=== PATIENT | female | born 1970 | race Caucasian/White ===

== ENCOUNTER 2021-06-18 06:54 | Day surgery (SDC) | payer OTHER, SELFPAY ==
--- NOTE | 2021-06-17 10:49 | HO.ANESPROP2 ---
Documented by User: Alyse Farah NP 06/17/21 10:50 HPI - Anesthesia Eval Consult details Narrative: 51yo F for Colonoscopy [facility] Past Medical History Medical History (Updated 06/17/21 @ 19:19 by Hao Leavitt MD) Anxiety Seasonal allergies Urinary incontinence Surgical History Surgical History (Updated 06/13/21 @ 09:45 by Iasbel Bassett, RN) Hx of colonoscopy Social History Social History Tobacco use type: Smokeless Tobacco Use of substances other than those prescribed or required for medical reasons: Yes Substance Use Frequency: Daily Are you DNR?: No Advance Directives: No Advance Directives Information Provided: Yes Recently lost weight without trying: No Meds Allergies Allergy/AdvReac Type Severity Reaction Status Date / Time No Known Allergies Allergy Unverified 05/17/20 19:16 [No Known Allergies*] ABX Sensitivity AdvReac Unknown Gastrointestinal Uncoded 06/13/21 09:49 Upset Home Medications Medication Instructions Recorded Confirmed Last Taken Type cholecalciferol (vitamin D3) 50 100 mcg PO DAILY 06/13/21 06/13/21 Unknown History mcg (2,000 unit) capsule (Vitamin D3) finasteride 1 mg tablet 1 mg PO DAILY 06/13/21 06/13/21 Unknown History multivitamin 1 tab PO DAILY 06/13/21 06/13/21 Unknown History pantoprazole 40 mg tablet,delayed 40 mg PO DAILY 06/13/21 06/13/21 Unknown History release Exam Exam Date and Time: June 17, 2021 1049 Assessment and Plan Assessment Anesthesia Assessment: Chart Reviewed Documented by User: Alicia Rivera MD 06/18/21 09:34 [facility] Past Medical History Medical History (Updated 06/17/21 @ 19:19 by Hao Leavitt MD) Anxiety Seasonal allergies Urinary incontinence Family History Family history of problems with anesthesia: No Surgical History Surgical History (Updated 06/13/21 @ 09:45 by Isabel Bassett, NIKO) Hx of colonoscopy History of Problems with Anesthesia: No (Was told she was moving a lot during colonoscopy. Review of only available record reveals that she did get a sizeable amount of propofol for colonoscopy. States was on pain medication at the time which she has since stopped and thinks she had a high tolerance.) Social History Social History Tobacco use type: Smokeless Tobacco Use of substances other than those prescribed or required for medical reasons: Yes Substance Use Frequency: Daily Are you DNR?: No Advance Directives: No Advance Directives Information Provided: Yes Recently lost weight without trying: No Meds Allergies Allergy/AdvReac Type Severity Reaction Status Date / Time No Known Allergies Allergy Unverified 05/17/20 19:16 [No Known Allergies*] ABX Sensitivity AdvReac Unknown Gastrointestinal Uncoded 06/13/21 09:49 Upset Home Medications Medication Instructions Recorded Confirmed Last Taken Type cholecalciferol (vitamin D3) 50 100 mcg PO DAILY 06/13/21 06/13/21 Unknown History mcg (2,000 unit) capsule (Vitamin D3) finasteride 1 mg tablet 1 mg PO DAILY 06/13/21 06/13/21 Unknown History multivitamin 1 tab PO DAILY 06/13/21 06/13/21 Unknown History pantoprazole 40 mg tablet,delayed 40 mg PO DAILY 06/13/21 06/13/21 Unknown History release Exam Height,Weight and Vital Signs: Height 5 ft 7 in Weight 68.946 kg Vital Signs Temp Pulse Resp BP Pulse Ox 06/18/21 07:14 97.5 F 65 15 116/71 96 Pertinent Lab Results Pertinent Lab Results: Lab Results 06/18/21 Range/Units 07:09 Urine Test NEGATIVE (NEGATIVE) Airway Mallampati Class: II TM Dist: >3cm Neck ROM: Full Loose/Missing/Broken Teeth: No Heart: RRR Lungs: CTAB Assessment and Plan Assessment Anesthesia Assessment: Anesthesia Plan Discussed Final Anesthetic Review Family History of Problems with Anesthesia: No History of Problems with Anesthesia: No (Was told she was moving a lot during colonoscopy. Review of only available record reveals that she did get a sizeable amount of propofol for colonoscopy. States was on pain medication at the time which she has since stopped and thinks she had a high tolerance.) NPO: Yes ASA Class: II Final Preanesthetic Review: No Changes in Pt Med Stat, Meds/Allgs Chart Reviewed, Consent Obtained/Reviewed and Anes Risks/Benef Reviewed Patient Risk: Low Procedure Risk: Low Assessment/Block/Sedation in SS: Assess/Block/Sedation-SS Anesthetic Plan Anesthetic Plan: MAC: Disposition: Standard PACU
[2021-06-18 07:08] VITALS: BMI 23.8
[2021-06-18 07:14] VITALS: BP 116/71; PULSE 65; RESP 15; TEMP 36.4; O2SAT 96
[2021-06-18 07:30] LABS: UPreg QC Valid YES; Urine Pregnancy NEGATIVE (NEGATIVE)
--- NOTE | 2021-06-18 08:19 | MHC.SHP ---
Pre-Procedural Eval Section A Date of Service: 06/18/21 Section B Chief Complaint: hx of polyps Details of Present Illness: seeH&P no changes Relevant Family History (Specify if Yes): No Relevant Social History: None Present Medications: see Short Stay Collaborative assessment Medical History: No relevant PMH History of Previous Operations: No relevant previous surgery Allergies: Allergies Allergy/AdvReac Type Severity Reaction Status Date / Time No Known Allergies Allergy Unverified 05/17/20 19:16 [No Known Allergies*] ABX Sensitivity AdvReac Unknown Gastrointestinal Uncoded 06/13/21 09:49 Upset Review of Systems Sugical H&P ROS: Negative: Constitution, Cardiovascular, Respiratory, Neurological, Psychiatric, Hem-Onc, Allergic/Immunologic, Gastrointestinal, Genitourinary, Musculoskeletal, Integumentary, Endocrine and Eyes/Ears/Nose/Throat Exam Surgical H&P Exam: Normal: HEENT, Normal: Heart, Normal: Lungs, Normal: Extremities, Normal: Abdomen, Normal: Skin and Normal: Neurological Plan Diagnosis/Plan: Unchanged I have reviewed the history and physical and performed a pertinent physical examination on my patient. No changes have occurred unless specified.
--- NOTE | 2021-06-18 08:47 | PM.OP ---
Brief Operative Note Date of Service: 06/18/21 Pre-op diagnosis: screening Post-op diagnosis: same (colon polyp) Surgeon: Jorge Castillo Anesthesia: MAC Was an [employer] used for this Procedure?: No Estimated blood loss (mL): 2 Pathology: other (polyp x1) Condition: stable Disposition: PACU
[2021-06-18 08:50] VITALS: BP 108/55; PULSE 51; RESP 14; TEMP 36.2; O2SAT 100
[2021-06-18 09:06] VITALS: BP 115/71; PULSE 50; RESP 16; TEMP 36.2; O2SAT 100
--- NOTE | 2021-06-18 17:44 | OP_ITS ---
SURGEON: Jorge Castillo MD INDICATIONS: Colon cancer screening and prior history of adenomatous colon polyps. PREOPERATIVE DIAGNOSIS: POSTOPERATIVE DIAGNOSIS: PROCEDURE PERFORMED: Colonoscopy to the terminal ileum with biopsy. ESTIMATED BLOOD LOSS: COMPLICATIONS: ANESTHESIA: ASSISTANTS: SPECIMENS: MEDICATIONS: Monitored anesthesia care. DESCRIPTION OF PROCEDURE: History and physical performed. The risks and benefits of the procedure were explained to the patient. Informed consent was obtained. The patient was placed in the left lateral decubitus position. A digital rectal exam was performed and was found to be normal. The Olympus pediatric video colonoscope was introduced into the rectum and advanced to the cecum without difficulty. The cecum was identified by transillumination, palpation, and identification of ileocecal valve. Examination was performed and the scope was removed. She tolerated the procedure well and was taken to recovery area in stable condition. FINDINGS: The terminal ileum was normal. The visualized colonic mucosa was within normal limits without evidence of masses or ulcers. A single polyp was identified and removed with biopsy forceps. This was located at 20 cm from the anal verge and measured less than 5 mm. No other polyps were identified. The quality of the prep was good. Retroflexed examination was normal. IMPRESSION: Colon polyp. RECOMMENDATION: Follow up biopsy results. MD FAVIO Ernandez/MICHELLE / [id number]
== END 2021-06-18 09:37 | disposition home or self-care (01) ==
PROVIDERS: Nurse Practitioner; PCP Hospitalist; Visit Provider Internal Medicine Gastroenterology
PROC: 0DJD8ZZ Inspection of Lower Intestinal Tract, Via Natural or Artificial Opening Endoscopic (ICD-10-PCS; CPT 45378; principal; 2021-06-18 08:10)
DX: Z12.11 Encounter for screening for malignant neoplasm of colon (principal); Z86.010 Personal history of colon polyps; K63.5 Polyp of colon; K21.9 Gastro-esophageal reflux disease without esophagitis; J30.2 Other seasonal allergic rhinitis; F41.1 Generalized anxiety disorder; Z79.899 Other long term (current) drug therapy
CPT/HCPCS: 45380; 81025; 88305

== ENCOUNTER 2021-08-19 09:44 | Outpatient (REF) | payer OTHER, SELFPAY ==
[2021-08-19 10:14] LABS: MANUAL DIFF FLAG NO
[2021-08-19 10:19] LABS: Basophils Percent Auto 0.8 % (0-2); Eosinophils Absolute Auto 0.2 X10*3/uL (0.0-0.4); Eosinophils Percent Auto 4.7 % (0-4); Hematocrit 41.2 % (37.0-47.0); Hemoglobin 13.2 g/dl (12.0-16.0); Lymphocytes Absolute Auto 1.3 X10*3/uL (1.2-4.9); Lymphocytes Percent Auto 26.8 % (20-40); Mean Corpuscular Hemoglobin 30.1 pg (27.0-33.0); Mean Corpuscular Volume 94.1 fL (80.0-98.0); Mean Platelet Volume 10.1 fL (9.4-12.3); Monocytes Absolute Auto 0.3 X10*3/uL (0.1-1.2); Monocytes Percent Auto 5.7 % (2-11); Neutrophils Absolute Auto 2.9 x10*3/uL (2.0-8.3); Platelet Count 327 X10*3/uL (160-400); Red Blood Count 4.38 X10*6/uL (4.20-5.50); Red Cell Distribution Width 11.8 % (11.0-16.0); White Blood Count 4.7 X10*3/uL (4.8-10.8)
[2021-08-19 10:55] LABS: Alanine Aminotransferase 13 U/L (0-31); Albumin Level 4.3 g/dL (3.5-5.0); Alkaline Phosphatase 60 U/L (39-117); Aspartate Amino Transferase 14 U/L (5-31); Bilirubin Direct 0.2 mg/dL (0.0-0.5); Bilirubin Total 0.4 mg/dL (0.0-1.0); Lipase 9 U/L (8-78); Total Protein 6.8 g/dL (6.5-8.0)
== END 2021-08-19 09:45 | disposition home or self-care (01) ==
LOC: HO.10HDL 09:44
PROVIDERS: Visit Provider Internal Medicine Gastroenterology
DX: R10.9 Unspecified abdominal pain (principal)
CPT/HCPCS: 36415; 80076; 83690; 85025

== ENCOUNTER 2022-10-14 09:15 | Day surgery (SDC) | payer OTHER, SELFPAY ==
[2022-10-14 09:40] LABS: UPreg QC Valid YES; Urine Pregnancy NEGATIVE (NEGATIVE)
[2022-10-14 10:01] VITALS: BP 141/79; PULSE 63; RESP 16; TEMP 36.8; O2SAT 98; BMI 25.8
--- NOTE | 2022-10-14 11:18 | HO.ANESPROP2 ---
HPI - Anesthesia Eval Consult details Narrative: 52 yr old female with GERD for endo PMFSH Active Problems Active Problems: All Active Problems (Updated 10/13/22 @ 09:06 by Idania Dougherty RN) Nausea and vomiting (Acute) Past Medical History Medical History (Updated 10/13/22 @ 09:06 by Idania Dougherty RN) Anxiety Back pain Hip pain Seasonal allergies Urinary incontinence Family History Family history of problems with anesthesia: No Surgical History Surgical History (Updated 10/13/22 @ 09:06 by Idania Dougherty RN) Hx of colonoscopy History of Problems with Anesthesia: No (Was told she was moving a lot during colonoscopy. Review of only available record reveals that she did get a sizeable amount of propofol for colonoscopy. States was on pain medication at the time which she has since stopped and thinks she had a high tolerance.) Social History Social History Patient Tobacco Use Status: Former Tobacco user Quit Date: 2020 Tobacco use type: Cigarette Cigarette Packs Per Day: 0.5 Cigarettes Per Day: 10.0 Years Smoked: 30 Smoked in Last 30 Days: No Use of substances other than those prescribed or required for medical reasons: Yes Substance Use Type Other:: Medical Marijuana Substance Use Frequency: Daily Are you DNR?: No Advance Directives: No Advance Directives Information Provided: Yes Meds Allergies Allergy/AdvReac Type Severity Reaction Status Date / Time No Known Allergies Allergy Verified 10/14/22 10:00 [No Known Allergies*] ABX Sensitivity AdvReac Unknown Gastrointestinal Uncoded 10/14/22 10:00 Upset Home Medications Medication Instructions Recorded Confirmed Last Taken Type cholecalciferol (vitamin D3) 50 100 mcg PO DAILY 06/13/21 10/14/22 Unknown History mcg (2,000 unit) capsule (Vitamin D3) multivitamin 1 tab PO DAILY 06/13/21 10/14/22 Unknown History pantoprazole 40 mg tablet,delayed 40 mg PO DAILY 06/13/21 10/14/22 Unknown History release bupropion HCl 150 mg 24 hr tablet, 150 mg PO DAILY 10/14/22 10/14/22 Unknown History extended release Exam Exam Date and Time: October 14, 2022 1118 Height,Weight and Vital Signs: Height 5 ft 7 in Weight 74.843 kg Last Vital Signs Temp 98.3 F 10/14/22 10:01 Pulse 63 10/14/22 10:01 Resp 16 10/14/22 10:01 BP 141/79 H 10/14/22 10:01 Pulse Ox 98 10/14/22 10:01 O2 Del Method 10/14/22 10:01 Pertinent Lab Results Pertinent Lab Results: Laboratory Tests 10/14/22 09:25 Urine Test NEGATIVE Airway Mallampati Class: II TM Dist: >3cm Neck ROM: Full Heart: rrr Lungs: cta Assessment and Plan Assessment Anesthesia Assessment: Anesthesia Plan Discussed and Chart Reviewed Final Anesthetic Review Family History of Problems with Anesthesia: No History of Problems with Anesthesia: No (Was told she was moving a lot during colonoscopy. Review of only available record reveals that she did get a sizeable amount of propofol for colonoscopy. States was on pain medication at the time which she has since stopped and thinks she had a high tolerance.) NPO: Yes ASA Class: II Final Preanesthetic Review: No Changes in Pt Med Stat, Meds/Allgs Chart Reviewed, Consent Obtained/Reviewed and Anes Risks/Benef Reviewed Patient Risk: Low Procedure Risk: Low Anesthetic Plan Anesthetic Plan: MAC: Disposition: Standard PACU
--- NOTE | 2022-10-14 11:21 | MHC.SHP ---
Pre-Procedural Eval Section A Date of Service: 10/14/22 The patient is an INPATIENT: No Changes since office visit: No Cold of Flu in the past 2 weeks, No New Medical Problems, No Changes in Medication and No Patient answered all questions The History & Physical has been completed within 30 days and I have reviewed it.: Yes Section B Chief Complaint: Epigastric pain Allergies: Allergies Allergy/AdvReac Type Severity Reaction Status Date / Time No Known Allergies Allergy Verified 10/14/22 10:00 [No Known Allergies*] ABX Sensitivity AdvReac Unknown Gastrointestinal Uncoded 10/14/22 10:00 Upset Plan I have reviewed the history and physical and performed a pertinent physical examination on my patient. No changes have occurred unless specified. Time Spent With Patient Time: Total time managing care of this patient today ____ minutes.
[2022-10-14] MEDS: Lactated Ringers 1,000 ML 100 ML IVCONT (11:24)
--- NOTE | 2022-10-14 11:44 | P.BOP_ITS ---
Brief Operative Note Date of Service: 10/14/22 Pre-op diagnosis: epigastric pain gerd Post-op diagnosis: same Procedure: EGD Surgeon: Jorge Castillo Anesthesia: MAC Was an Operating Room Orderly used for this Procedure?: No Estimated blood loss (mL): 2 Pathology: other Condition: stable Disposition: PACU
[2022-10-14 11:47] VITALS: BP 101/65; PULSE 57; RESP 17; TEMP 37.3; O2SAT 99
[2022-10-14 12:02] VITALS: BP 137/81; PULSE 67; RESP 18; TEMP 36.1; O2SAT 100
--- NOTE | 2022-10-14 12:26 | OP_ITS ---
SURGEON: Jorge Castillo MD INDICATIONS: Epigastric pain and GERD. PREOPERATIVE DIAGNOSIS: POSTOPERATIVE DIAGNOSIS: PROCEDURE PERFORMED: Upper endoscopy with biopsy. ESTIMATED BLOOD LOSS: COMPLICATIONS: ANESTHESIA: Monitored anesthesia care. ASSISTANTS: SPECIMENS: DESCRIPTION OF PROCEDURE: The procedure was performed on 10/14/2022. History and physical was performed. The risks and benefits of the procedure were explained to the patient. Informed consent was obtained. The patient was placed in the left lateral decubitus position. The Olympus video gastroscope was introduced into the esophagus, stomach, and duodenum. Examination was performed. The scope was removed. She tolerated the procedure well and was taken to the recovery area in stable condition. FINDINGS: Esophagus: The esophagus was normal. There was an irregular EG junction. Biopsies were obtained at 30 cm and at the EG junction. There was no esophagitis. Stomach: The stomach showed a small hiatal hernia. There was no gastritis. Biopsies were obtained from the antrum. Duodenum: The bulb and 2nd portion were normal. IMPRESSION: Gastroesophageal reflux disease. RECOMMENDATION: Follow up the biopsy results. MD FAVIO Ernandez/MICHELLE / [id number]
== END 2022-10-14 12:34 | disposition home or self-care (01) ==
PROVIDERS: Anesthesiology; PCP Hospitalist; Visit Provider Internal Medicine Gastroenterology
PROC: 0DJ08ZZ Inspection of Upper Intestinal Tract, Via Natural or Artificial Opening Endoscopic (ICD-10-PCS; CPT 43235; principal; 2022-10-14 10:40)
DX: R10.13 Epigastric pain (principal); K21.9 Gastro-esophageal reflux disease without esophagitis; K44.9 Diaphragmatic hernia without obstruction or gangrene; R32 Unspecified urinary incontinence; J30.2 Other seasonal allergic rhinitis; F41.1 Generalized anxiety disorder; Z79.899 Other long term (current) drug therapy; Z88.1 Allergy status to other antibiotic agents
CPT/HCPCS: 43239; 81025; 88305; 88342

== ENCOUNTER 2025-02-14 09:29 | Day surgery (SDC) | payer OTHER, SELFPAY ==
--- OUTSIDE RECORDS SUMMARY | 2025-02-10 13:16 | XMS_ITS ---
Author Organization [facility] Address [address] [place] [address] Care Team Providers Care [place] Constable Name Role Phone ISABELA AGUERO Primary Care Provider Jorge Diallo Jr Unavailable Allergies Allergen (clinical drug ingredient) Drug/Non Drug Allergy documented on EMR Reaction Allergy Type Onset Date Status antibiotics (uncoded) stomach upset Allergy Active REASON FOR VISIT patient presents today for mora's esophagus Medications Medication SIG (Take, Route, Frequency, Duration) Notes Start Date End Date Status Hydrocortisone (Perianal) 2.5 % APPLY DAILY TO SKIN TO AFFECTED AREA TWICE A DAY FOR 30 DAYS for 30 days Active Pantoprazole Sodium 40 MG TAKE 1 TABLET BY MOUTH EVERY DAY FOR 30 DAYS for 90 Active buPROPion HCl ER (XL) 150 MG TAKE 1 TABLET BY MOUTH EVERY DAY IN THE MORNING FOR 30 DAYS Oral for 30 Active Multivitamin Adult - Orally Active Vitamin D3 2000 UNIT TAKE 2 CAPSULES BY MOUTH EVERY DAY Oral for 30 Active Antacid Not-Taking Social History Tobacco Use: Social History Observation Description Date Details (start date - stop date) Former Smoker NA - NA Tobacco Control (Standard) Question Answer Notes Tobacco use: Former smoker How long has it been since you last smoked? 1-5 years Section Notes: quit tobacco 09/16/2020 Vital Signs Blood pressure systolic 111 mm Hg 01/20/20 25 Blood pressure diastolic 77 mm Hg 025 Height 67 in 01/19/2025 Weight 161 lbs 01/19/2025 BMI 25.21 kg/m2 01/19/2025 Encounters Encounter Location Date Provider Diagnosis [facility] [address] [place] [address] 01/19/2025 Jorge Castillo Jr Mora's esophagus without dysplasia K22.70 and Rectal pain K62.89 Assessments Encounter Date Diagnosis (ICD Code) Assessment Notes Treatment Notes Treatment Clinical Notes Section Notes 01/19/2025 Mora's esophagus without dysplasia (ICD-10 - K22.70) We discussed her symptoms today. She will use hydrocortisone OTC for rectal discomfort. We discussed how to use this medication in detail. She is due for follow-up of her Mora's esophagus. This will be arranged at her convenience. She understands endoscopy including risks and benefits and agrees to proceed. 01/19/2025 Rectal pain (ICD-10 - K62.89) We discussed her symptoms today. She will use hydrocortisone OTC for rectal discomfort. We discussed how to use this medication in detail. She is due for follow-up of her Mora's esophagus. This will be arranged at her convenience. She understands endoscopy including risks and benefits and agrees to proceed. Plan Of Treatment Medication Medication Name Sig Start Date Stop Date Notes Hydrocortisone (Perianal) 2.5 % APPLY DA STEVEN TO SKIN TO AFFECTED AREA TWICE A DAY FOR 30 DAYS for 30 days Future Test Test Name Order Date UPPER GI ENDOSCOPY 01/19/2025 Next Appt Details Follow Up: 1 Year, Reason: Provider Name:Jorge casanova Jr, 02/14/2025 11:10:00 AM, [address] [place] [address], [id number], Progress Notes * AJ HALLMANOB: 2 (54 yo F)Acc No.[id number]:01/19/2025 Progress Notes Patient:?HALINA HALLMAN Provider:?Jorge Castillo MD :1970???Age:54 Y???Sex:Female D ate:01/19/2025 Address:[address] [place] [address] Pcp:ISABELA AGUERO Subjective: * Chief Complaints: * ???1. Patient presents today for mora's esophagus. * HPI: ???New symptom(s):?The patient is a pleasant 54-year-old woman seen today in follow-up of Mora's esophagus and colorectal cancer screening. Since we saw her last in 2022 she has been doing well. She had endoscopy at that time and is due for follow-up shortly. She takes pantoprazole 40 mg daily. She has no complaints of dysphagia, hematemesis, or melena. She does have occasional heartburn. She reports stools are thin and soft. There is no rectal bleeding.There is some rectal pain and we discussed using hydrocortisone cream for intermittent rectal symptoms today. * Medical History:?Urinary inc ontinence, Colonoscopy 06/18/21, hyperplastic polyp, five-year followup due to prior history of tubular adenomas, Anxiety, Back and hip problems, Seasonal allergies, Gastroesophageal reflux disease, EGD 10/14/22, Mora's esophagus, no dysplasia three-year followup. * Surgical History:?skin over eyes cut to see as infant , wisdom teeth age 17. * Family History:?Father: tiara desai, diagnosed with Heart disease, HTN (hypertension).?Mother: alive.?Paternal Grand Mother: , stomach cancer.? paternal cousin in his 30's type of stomach ca Patient is not aware of any colon cancer, polyps or liver cancer. * Social History:?Tobacco Use:?Tobacco Control (Standard)?Tobacco use:?Former smoker,?How long has it been since you last smoked??1-5 years.?Miscellaneous:?Marital status: single. Occupation: clerical. ???quit tobacco 09/16/2020. * Medications:?Taking Vitamin D3 2000 UNIT Capsule TAKE 2 CAPSULES BY MOUTH EVERY DAY Oral , Taking Multivitamin Adult - Tablet Orally , Taking buPROPion HCl ER (XL) 150 MG Tablet Extended Release 24 Hour TAKE 1 TABLET BY MOUTH EVERY DAY IN THE MORNING FOR 30 DAYS Oral , Taking Pantoprazole Sodium 40 MG Tablet Delayed Release TAKE 1 TABLET BY MOUTH EVERY DAY FOR 30 DAYS , Not-Taking/PRN Antacid , Not-Taking/PRN Hydrocortisone (Perianal) 2.5 % Cream APPLY DAILY TO SKIN TO AFFECTED AREA TWICE A DAY FOR 30 DAYS , Discontinued Famotidine 20 MG Tablet 1 tablet at bedtime Orally Once a day , Medication List reviewed and reconciled with the patient * Allergies:?Antibiotics: Stom ach Upset. Objective: * Vitals:?Wt:161lbs, Ht: 67 in , BMI:25.21Index, BP:111/77mm Hg, Wt-k.03. * Examination: ???General Examination: ???On examination today, Halina is a pleasant well-appearing female in no acute distress. Skin is anicteric. Lungs are clear. Heart shows a regular rate and rhythm. Abdomen is soft without focal masses or tenderness. Extremities are without edema. Assessment: * Assessment: 1.?Mora's esophagus witho ut dysplasia - K22.70 (Primary)???2.?Rectal pain - K62.89??? We discussed her symptoms to day. She will use hydrocortisone OTC for rectal discomfort. We discussed how to use this medication in detail. She is due for follow-up of her Mora's esophagus. This will be arranged at her convenience. She understands endoscopy including risks and benefits and agrees to proceed. Plan: * Treatment: 2.?Rectal pain? Refill Hydrocortisone (Perianal) Cream, 2.5 %, APPLY DAILY TO SKIN TO AFFECTED AREA TWICE A DAY FOR30 DAYS, 30 days, 30 Gram, Refills 0.?? * Procedure Codes:?3017F COLOR ECTAL CA SCREEN DOC REV, 1036F TOBACCO NON-USER, G8785 BP SCR NOT PRFRM REC REASON NOS * Preventive Medicine:? ??Counseling:?Care goal follow-up plan:?Above Normal BMI Follow-up?Giving encouragement to exercise,?BMI management provided?Yes.? * Follow Up:?1 Year * * Sign off status: Completed true * Provider:?Jorge Castillo MD Date:?0 01/19/2025 Generated for Michael salvador/Carolin/Oliviaitting on:?02/10/2025 01:15 PM EDT History and Physical Notes * HPI (History of Present Illness) Category Sub-Category Detail Notes Category Not es New symptom(s) The patient i s a pleasant 54-year-old woman seen today in follow-up of Mora's esophagus and colorectal cancer screening. Since we saw her last in 2022 she has been doing well. She had endoscopy at that time and is due for follow-up shortly. She takes pantoprazole 40 mg daily. She has no complaints of dysphagia, hematemesis, or melena. She does have occasional heartburn. She reports stools are thin and soft. There is no rectal bleeding.There is some rectal pain and we discussed using hydrocortisone cream for intermittent rectal symptoms today. Examination Category Sub-Category Detail Notes Category Not es General Examination On exami nation today, Halina is a pleasant well-appearing female in no acute distress. Skin is anicteric. Lungs are clear. Heart shows a regular rate and rhythm. Abdomen is soft without focal masses or tenderness. Extremities are without edema.
[2025-02-10 14:56] VITALS: BMI 25.2
--- NOTE | 2025-02-13 10:36 | P.CONAN_ITS ---
Documented by User: Alyse Farah NP 02/13/25 10:36 HPI - Anesthesia Eval Consult details Narrative: 55yo F for Upper Endoscopy PMFSH Active Problems Active Problems: All Active Problems Nausea and vomiting (Acute) Past Medical History Medical History GERD (gastroesophageal reflux disease) Johnson's esophagus Hip pain Back pain Seasonal allergies Anxiety Urinary incontinence Family History Family history of problems with anesthesia: No Surgical History Surgical History Hx of wisdom tooth extraction History of eyelid surgery History of esophagogastroduodenoscopy (EGD) (10/14/22) Hx of colonoscopy History of Problems with Anesthesia: No (Was told she was moving a lot during colonoscopy. Review of only available record reveals that she did get a sizeable amount of propofol for colonoscopy. States was on pain medication at the time which she has since stopped and thinks she had a high tolerance.) Social History Social History Are you a primary auto care center manager to a significant other at home: No Do you presently have visiting nurse or other home services: No Patient Tobacco Use Status: Former Tobacco user Tobacco use type: Cigarette Cigarette Packs Per Day: 0.5 Cigarettes Per Day: 10.0 Years Smoked: 30 Meds Allergies Allergy/AdvReac Type Severity Reaction Status Date / Time No Known Allergies Allergy Verified 10/14/22 10:00 [No Known Allergies*] ABX Sensitivity AdvReac Unknown Gastrointestinal Uncoded 10/14/22 10:00 Upset Home Medications ?Medication ?Instructions ?Recorded ?Confirmed ?Last Taken ?Type cholecalciferol (vitamin D3) 50 100 mcg PO DAILY 06/13/21 02/10/25 Unknown History mcg (2,000 unit) capsule (Vitamin D3) multivitamin 1 tab PO DAILY 06/13/21 02/10/25 Unknown History pantoprazole 40 mg tablet,delayed 40 mg PO DAILY 06/13/21 02/14/25 02/14/25 History release bupropion HCl 150 mg 24 hr tablet, 150 mg PO DAILY 10/14/22 02/10/25 Unknown History extended release Exam Height,Weight and Vital Signs: Height 5 ft 7 in Weight 73.028 kg Assessment and Plan Assessment Anesthesia Assessment: Chart Reviewed Final Anesthetic Review Family History of Problems with Anesthesia: No History of Problems with Anesthesia: No (Was told she was moving a lot during colonoscopy. Review of only available record reveals that she did get a sizeable amount of propofol for colonoscopy. States was on pain medication at the time which she has since stopped and thinks she had a high tolerance.) Documented by User: Misty Welch MD 02/14/25 11:20 PMFSH Past Medical History Medical History GERD (gastroesophageal reflux disease) Johnson's esophagus Hip pain Back pain Seasonal allergies Anxiety Urinary incontinence Surgical History Surgical History Hx of wisdom tooth extraction History of eyelid surgery History of esophagogastroduodenoscopy (EGD) (10/14/22) Hx of colonoscopy Social History Social History Are you a primary auto care center manager to a significant other at home: No Do you presently have visiting nurse or other home services: No Patient Tobacco Use Status: Former Tobacco user Tobacco use type: Cigarette Cigarette Packs Per Day: 0.5 Cigarettes Per Day: 10.0 Years Smoked: 30 Meds Allergies Allergy/AdvReac Type Severity Reaction Status Date / Time No Known Allergies Allergy Verified 10/14/22 10:00 [No Known Allergies*] ABX Sensitivity AdvReac Unknown Gastrointestinal Uncoded 10/14/22 10:00 Upset Home Medications ?Medication ?Instructions ?Recorded ?Confirmed ?Last Taken ?Type cholecalciferol (vitamin D3) 50 100 mcg PO DAILY 06/13/21 02/10/25 Unknown History mcg (2,000 unit) capsule (Vitamin D3) multivitamin 1 tab PO DAILY 06/13/21 02/10/25 Unknown History pantoprazole 40 mg tablet,delayed 40 mg PO DAILY 10/14/21 06/17/25 06/17/25 History release bupropion HCl 150 mg 24 hr tablet, 150 mg PO DAILY 10/14/22 02/10/25 Unknown History extended release Exam Airway Mallampati Class: II TM Dist: >3cm Neck ROM: Full Loose/Missing/Broken Teeth: No Heart: RRR Lungs: CTA Assessment and Plan Assessment Anesthesia Assessment: Anesthesia Plan Discussed Final Anesthetic Review NPO: Yes ASA Class: II Final Preanesthetic Review: Meds/Allgs Chart Reviewed, Consent Obtained/Reviewed and Anes Risks/Benef Reviewed Patient Risk: Low Procedure Risk: Intermediate Anesthetic Plan Anesthetic Plan: MAC: Disposition: Standard PACU
[2025-02-14 09:58] VITALS: BP 132/80; PULSE 61; RESP 12; TEMP 36.2; O2SAT 99; BMI 25.9
[2025-02-14] MEDS: Lactated Ringers 1,000 ML 100 ML IVCONT (10:17)
--- NOTE | 2025-02-14 11:17 | MHC.SHP ---
Pre-Procedural Eval Section A - 24 Hr Update-Section A only Date of Service: 02/14/25 The patient is an INPATIENT: No Changes since office visit: No Cold of Flu in the past 2 weeks, No New Medical Problems, No Changes in Medication and No Patient answered all questions The patient has been examined within 24 hours of the surgical procedure. The History & Physical has been completed within 30 days and I have reviewed it.: Yes Section B - Complete if H&P > 30 days Chief Complaint: Johnson's esophagus without dysplasia Allergies: Allergies Allergy/AdvReac Type Severity Reaction Status Date / Time No Known Allergies Allergy Verified 10/14/22 10:00 [No Known Allergies*] ABX Sensitivity AdvReac Unknown Gastrointestinal Uncoded 10/14/22 10:00 Upset Plan I have reviewed the history and physical and performed a pertinent physical examination on my patient. No changes have occurred unless specified. Time Spent With Patient Time: Total time managing care of this patient today ____ minutes.
[2025-02-14 11:56] VITALS: BP 114/67; PULSE 70; RESP 16; TEMP 36.4; O2SAT 98
--- NOTE | 2025-02-14 12:08 | OP_ITS ---
DATE OF SERVICE: 02/14/2025 SURGEON: Jorge Castillo MD INDICATIONS: Gastroesophageal reflux disease and history of Johnson esophagus. PREOPERATIVE DIAGNOSIS: POSTOPERATIVE DIAGNOSIS: PROCEDURE PERFORMED: Upper endoscopy with biopsy. ESTIMATED BLOOD LOSS: COMPLICATIONS: ANESTHESIA: Medications, monitored anesthesia care. ASSISTANTS: SPECIMENS: DESCRIPTION OF PROCEDURE: A history and physical performed. The risks and benefits of the procedure were explained to the patient. Informed consent was obtained. The patient was placed in the left lateral decubitus position. The Olympus video gastroscope was introduced into the esophagus, stomach, and duodenum. Examination was performed. The scope was removed. She tolerated the procedure well and was turned recovery area in stable condition. FINDINGS: Esophagus: The esophagus showed an irregular EG junction. This was biopsied. There were no raised lesions or ulcerated areas. Stomach: Showed no evidence of masses, ulcers, or polyps. Antral biopsies were obtained. Duodenum: The bulb and 2nd portion were normal. The esophagus also had a slight ring-like appearance to it and biopsies were obtained to rule out eosinophilic esophagitis. There was a nonobstructive Schatzki ring at the EG junction. No dilation was performed. IMPRESSION: Johnson esophagus. RECOMMENDATION: Follow up the biopsy results. MD FAVIO Ernandez/MICHELLE / [id number]
[2025-02-14 12:14] VITALS: BP 121/65; PULSE 59; RESP 18; TEMP 36.4; O2SAT 98
== END 2025-02-14 12:50 | disposition home or self-care (01) ==
PROVIDERS: PCP Hospitalist; Visit Provider Internal Medicine Gastroenterology
PROC: 0DJ08ZZ Inspection of Upper Intestinal Tract, Via Natural or Artificial Opening Endoscopic (ICD-10-PCS; CPT 43235; principal; 2025-02-14 11:00)
DX: K22.70 Barrett's esophagus without dysplasia (principal); K21.9 Gastro-esophageal reflux disease without esophagitis; K22.2 Esophageal obstruction; R32 Unspecified urinary incontinence; F41.9 Anxiety disorder, unspecified; M54.9 Dorsalgia, unspecified; M25.559 Pain in unspecified hip; K62.89 Other specified diseases of anus and rectum; J30.2 Other seasonal allergic rhinitis; Z79.899 Other long term (current) drug therapy; Z87.891 Personal history of nicotine dependence; Z98.890 Other specified postprocedural states; Z88.1 Allergy status to other antibiotic agents
CPT/HCPCS: 43239; 88305; 88313; 88342; J2003; J2250; J2704; J3010